=== PATIENT | female | born 1955 | race Caucasian/White ===

== ENCOUNTER 2021-01-11 06:36 | Day surgery (SDC) | payer MEDICARE, SELFPAY ==
[2021-01-05 10:19] VITALS: BMI 25.9
--- NOTE | 2021-01-09 12:24 | HP_ITS ---
DATE OF SERVICE: 01/11/2021 PREOPERATIVE DIAGNOSES: 1. Hallux abductovalgus deformity, left foot. 2. Hammertoe deformity, left 2nd toe. 3. Hammertoe deformity, left 3rd toe. PLANNED PROCEDURE: 1. Left foot Lapidus bunionectomy. 2. Hammertoe repair with K-wire fixation, left 2nd toe. 3. Hammertoe repair, 3rd toe of left foot with K-wire fixation. PAST MEDICAL HISTORY: 1. Angina. 2. Chickenpox. 3. Joint implants and screws. CURRENT MEDICATIONS: 1. Aspirin 81 mg. 2. Magnesium. 3. Isosorbide mononitrate extended release. 4. Potassium. 5. Verapamil. 6. Vitamin D. SURGICAL HISTORY: 1. Hernia repair in 2019. 2. Right RCR in 2017. 3. Hammertoe surgery of left foot in 2019. 4. Bunionectomy of right foot in 2017. FAMILY HISTORY: Significant for stroke, cancer, and foot problems. SOCIAL HISTORY: The patient is a former smoker, current nonsmoker. She denies any illicit drug use. Relates occasional alcohol use. She is . 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 ALLERGIES: TO KEFLEX AND CEFTIN. HOSPITALIZATIONS: Denies. REVIEW OF SYSTEMS: Within normal limits. HISTORY OF PRESENT ILLNESS: This is a 65-year-old female who presents with pain in her left 2nd and 3rd toes as well as a bunion deformity of the left foot that has been present for several years. The patient has previous hammertoe surgery that has left significant pain in her toes with calluses on the plantar aspect of the 2nd and 3rd toe. The patient states that the pain in her left foot has been gradually getting worse. She has tried change in shoes, padding, rest. Previous hammertoe surgeries without any significant relief in symptoms. PHYSICAL EXAM: GENERAL: Reveals a pleasant, alert, well-nourished, well-developed, well-hydrated individual who demonstrates proper attention to body habitus, in no acute distress. She is oriented x3. NEUROLOGICAL: Exam reveals intact sensorium. Pain sensation is normal. Vibratory sensation is intact. Pinprick sensation is normal. The patient denies any anesthesias, burning paresthesias, or tingling bilaterally. VASCULAR: DP and PT pulses are 3/4 bilaterally. Capillary refill is immediate to all digits. Skin temperature is warm to cool, proximal to distal. Hair growth, texture, elasticity, and turgor are normal bilaterally. Pigmentation is normal. There is no edema. DERMATOLOGICAL: Exam reveals no masses. The interspaces are clear. There is keratotic lesions noted to the plantar aspect of the left 2nd and 3rd toes. ORTHOPEDIC EXAM: Muscle strength is 5/5 in a symmetrical fashion bilaterally. Her gait is pronated with bilateral pes planus deformity semi-flexible. There is a medially prominent 1st metatarsophalangeal joint of the left foot. Lateral tracking is incompletely reducible. Inflammation is absent and there is moderate hypermobility of the 1st ray. Digital deformity reveals pain, swelling, enlargement at the base of the PIP joint of the left 2nd and 3rd toes. DIAGNOSTIC DATA: X-ray exams are reviewed, reveals normal bone and soft tissue density consistent with patient's age and sex. She has enlarged hypertrophied phalangeal previous head resections. Clinical findings consistent with hammertoe deformity. There is increased 1st intermetatarsal angle and hallux abductus angle consistent with bunion deformity, hypertrophy of the dorsal first metatarsal head without subchondral cyst noted. Met primus elevatus is moderate. Primus metatarsal protrusion is negative 2 to negative 4. Left metatarsus adductus is normal and the sesamoid position is about 6. There are no fractures identified. PLAN: The patient is scheduled for surgery for bunion and hammertoe deformity. Discussed several options for surgery for her bunion including modified Richardson bunionectomy, Zachery bunionectomy, scarf versus base wedge osteotomies as well as a Lapidus. We discussed the risks of having surgery versus not having surgery, the potential surgical complications which are including, but not limited to pain, swelling, bleeding, scarring, numbness, infection, delayed or nonhealing, floppy toe, unstable toe, shortened toe, recurrence, failure of the procedure, over-correction, we need to plantar flex downward or upward position of the toe, need for further surgery, as well as possibility of loss of toe, foot, life, or limb. Discussed with patient the use of local and IV regional anesthesia and the usual postoperative course, no guarantees were given. The patient verbally indicated a full understanding of the above conversation and any other questions were answered to their satisfaction. We decided on performing a Lapidus bunionectomy with hammertoe repair and K-wire fixation to the 2nd and 3rd toes based on the patient's complaints, medical and social history, physical exam, x-ray analysis. The patient would like to proceed with surgery. The patient will obtain preoperative labs as well as medical clearance for surgery and anesthesia. She is made aware to stop any and all blood thinners including [id number] fish oil and rnbt-[id number] baby aspirin at least 1 week prior to surgery. She is made aware that driving is not permitted during a portion of the postoperative period and not to utilize any smoking or tobacco products. Discussed with the patient that given her previous hammertoe surgery, may not be able to relieve the pain in calluses that the patient currently has. The patient is aware of this risks and wants to proceed with surgery. The patient is requesting a popliteal block on the day of surgery, which has been ordered for her at [facility]. She will be nonweightbearing to the left foot with a knee scooter, which patient states she has. Narcotic pain medication was dispensed. She can half fill the prescription and discussed lowest dosage of narcotics in shortest duration of time. The patient also requests a scopolamine patch as she does get nausea after surgery which was prescribed and sent to her pharmacy. The patient can also stagger taking extra-strength Tylenol and Motrin as needed for pain postoperatively and not to take Tylenol with the Percocet as Percocet has Tylenol in it already. Cindy Carlton DPM LP/CLIFFORD / [phone]
--- NOTE | 2021-01-10 10:20 | HO.ANESPROP2 ---
Documented by User: Karime Stormney 01/10/21 12:13 HPI - Anesthesia Eval Consult details Narrative: 65yo F for Left Bunionectomy and Hammer Toe Repair PCP cleared [facility] Past Medical History Medical History (Updated 01/11/21 @ 08:08 by Paula Duarte MD) HTN (hypertension) Prinzmetal angina Surgical History Surgical History (Updated 01/05/21 @ 10:18 by Marjorie Pena) History of femoral hernia repair History of laparoscopic adjustable gastric banding Hx of cataract extraction Hx of tubal ligation Social History Social History Patient Tobacco Use Status: Former Tobacco user Use of substances other than those prescribed or required for medical reasons: No Have you been hit, kicked, punched, or otherwise hurt by someone within the past year? If so, by whom?: No Are you DNR?: No Advance Directives: No Advance Directives Information Provided: Yes Meds Allergies Allergy/AdvReac Type Severity Reaction Status Date / Time cefuroxime [From Ceftin] Allergy Unknown Verified 01/11/21 07:06 cephalexin [From Keflex] Allergy Rash Verified 01/11/21 07:06 Active Medications: Current Medications Generic Name Dose Route Start Last Admin Trade Name Freq PRN Reason Stop Dose Admin Pharmacy Consult 1 each 01/09/21 11:26 Consult Rx Vancomycin Dosing MISCELLANE DAILY PRN Consult order Exam Exam Date and Time: January 10, 2021 1020 Height,Weight and Vital Signs: Height 5 ft 2.99 in Weight 66.5 kg Pertinent Lab Results Pertinent Lab Results: CMP and CBC from outside facility WNL Narrative Narrative: EKG 12/20/20 SB @ 57 T wave inversion No change from previous Assessment and Plan Assessment Anesthesia Assessment: Chart Reviewed Documented by User: Paula Duarte MD 01/11/21 08:08 [facility] Past Medical History Medical History (Updated 01/11/21 @ 08:08 by Paula Duarte MD) HTN (hypertension) Prinzmetal angina Family History Family history of problems with anesthesia: No Surgical History Surgical History (Updated 01/05/21 @ 10:18 by Marjorie ePna) History of femoral hernia repair History of laparoscopic adjustable gastric banding Hx of cataract extraction Hx of tubal ligation History of Problems with Anesthesia: Yes (Severe N&V with versed) Social History Social History Patient Tobacco Use Status: Former Tobacco user Use of substances other than those prescribed or required for medical reasons: No Have you been hit, kicked, punched, or otherwise hurt by someone within the past year? If so, by whom?: No Are you DNR?: No Advance Directives: No Advance Directives Information Provided: Yes Meds Allergies Allergy/AdvReac Type Severity Reaction Status Date / Time cefuroxime [From Ceftin] Allergy Unknown Verified 01/11/21 07:06 cephalexin [From Keflex] Allergy Rash Verified 01/11/21 07:06 Exam Height,Weight and Vital Signs: Height 5 ft 2.99 in Weight 66.5 kg Vital Signs Temp Pulse Resp BP Pulse Ox 01/11/21 06:52 97.0 F 79 18 141/83 H 97 Airway Mallampati Class: II TM Dist: >3cm Neck ROM: Full Heart: RRR Lungs: CTAB Assessment and Plan Assessment Anesthesia Assessment: Anesthesia Plan Discussed Final Anesthetic Review Family History of Problems with Anesthesia: No History of Problems with Anesthesia: Yes (Severe N&V with versed) NPO: Yes ASA Class: III Final Preanesthetic Review: No Changes in Pt Med Stat, Meds/Allgs Chart Reviewed, Consent Obtained/Reviewed and Anes Risks/Benef Reviewed Patient Risk: Intermediate Procedure Risk: Low Assessment/Block/Sedation in SS: Assess/Block/Sedation- Anesthetic Plan Anesthetic Plan: MAC: and Regional Block (Saphenous and popliteal blocks) Disposition: Standard PACU
--- NOTE | ~2021-01-11 | FL_ITS ---
EXAMINATION: XR FLUOROSCOPY WITH IMAGES CLINICAL INFORMATION: Bunionectomy. COMPARISON: None. TECHNIQUE: Fluoroscopy performed by Cindy Carlton. Fluoroscopy time: 21.5 sec DAP: 9993.0 mGycm2 Images: 1 FINDINGS: There is partial resection of mid segment proximal phalanx third digit with a solitary pin traversing the distal mid and proximal phalanx. There is a solitary pin traversing proximal and mid phalanx second digit. There is bunionectomy changes along the distal first metatarsal. There is metallic plate and screws extending from the proximal first metatarsal to the tarsal bones likely for fusion. FL/FL guidance in OR IMPRESSION: Fluoroscopy was provided to referring physician during distal first metatarsal bunionectomy.
[2021-01-11 06:52] VITALS: BP 141/83; PULSE 79; RESP 18; TEMP 36.1; O2SAT 97; BMI 25.4
[2021-01-11] MEDS: Lactated Ringers 1,000 ML 100 ML IVCONT (07:11)
--- NOTE | 2021-01-11 07:15 | PC.NURSE ---
THIS RN CALLED PHARMACY TO MAKE SURE VANCOMYCIN DOSE IS OKAY. PHARMACY APPROVED VANCOMYCIN 1,000 MG IV.
[2021-01-11] MEDS: vancomycin HCL 1,000 MG in 0.9 % Sodium Chloride 250 ML 270 MG IV (07:42)
--- NOTE | 2021-01-11 08:01 | PC.NURSE ---
NERVE BLOCK BEING COMPLETED AT THIS TIME AT BEDSIDE. TIME OUT COMPLETED.
--- NOTE | 2021-01-11 08:26 | MHC.SHP ---
Pre-Procedural Eval Section A Date of Service: 01/11/21 The patient is an INPATIENT: No Changes since office visit: No Cold of Flu in the past 2 weeks, No New Medical Problems, No Changes in Medication and No Patient answered all questions The History & Physical has been completed within 30 days and I have reviewed it.: Yes Section B Chief Complaint: hallux,hammer toe left foot Allergies: Allergies Allergy/AdvReac Type Severity Reaction Status Date / Time cefuroxime [From Ceftin] Allergy Unknown Verified 01/11/21 07:06 cephalexin [From Keflex] Allergy Rash Verified 01/11/21 07:06 Plan I have reviewed the history and physical and performed a pertinent physical examination on my patient. No changes have occurred unless specified.
--- NOTE | 2021-01-11 10:22 | P.BOP_ITS ---
Brief Operative Note Date of Service: 01/11/21 Pre-op diagnosis: Hallux valgus left, hammer toe 2nd 3rd left Post-op diagnosis: same Procedure: Left lapidus bunionectomy, hammertoe repair with K-wire 2nd 3rd left+ Implants: Lapifus plate and 2 k-wires Surgeon: Cindy Carlton Was an Ammonium Nitrate Crystallizer used for this Procedure?: Yes Ammonium Nitrate Crystallizer: Amilcar Quintana Estimated blood loss (mL): 5 Tourniquet time (min): 81 Pathology: other Condition: stable Disposition: PACU
[2021-01-11 10:25] VITALS: BP 111/67; PULSE 66; RESP 16; TEMP 36.4; O2SAT 95
[2021-01-11 10:40] VITALS: BP 143/76; PULSE 57; RESP 16; O2SAT 100
[2021-01-11 10:55] VITALS: BP 153/79; PULSE 68; RESP 20; TEMP 36.4
--- NOTE | 2021-01-15 14:43 | OP_ITS ---
SURGEON: Cindy Carlton DPM PREOPERATIVE DIAGNOSES: 1. Hallux abductovalgus deformity, left foot. 2. Hammertoe deformity, left second toe. 3. Hammertoe deformity, left third toe. POSTOPERATIVE DIAGNOSES: 1. Hallux abductovalgus deformity, left foot. 2. Hammertoe deformity, left second toe. 3. Hammertoe deformity, left third toe. PROCEDURES PERFORMED: 1. Lapidus bunionectomy, left foot. 2. Hammertoe correction with K-wire fixation, second toe. 3. Hammertoe correction, left third toe with K-wire fixation. ESTIMATED BLOOD LOSS: Less than 5 mL. COMPLICATIONS: None. ANESTHESIA: Monitored anesthetic care with local. Popliteal block of the left lower extremity. SPECIMENS: Bone, left foot. HEMOSTASIS: Pneumatic ankle tourniquet set at 225 mmHg for 81 minutes. FOOD AND BEVERAGE ASSOCIATE: Amilcar Quintana DPM. INDICATIONS FOR SURGERY: The patient had painful bunion and hammertoe deformities of the second and third toes of the left foot that have been present for some time. The patient had previous hammertoe corrections without significant relief of symptoms and her bunion was getting progressively worse. The patient had failed conservative therapies and wanted to proceed with surgical treatment. The above-mentioned surgery was discussed in detail with the patient including risks, benefits, and possible complications. No guarantees were given, and a written and oral informed consent was obtained. DESCRIPTION OF PROCEDURE: The patient was brought into the operating room and placed on the operating table in the usual supine position. The patient was given a prophylactic antibiotic of vancomycin. She was given a popliteal block preoperatively in the PACU in the preop area. Following IV sedation, the left foot was scrubbed, prepped, and draped in a sterile manner. The pneumatic ankle tourniquet was inflated and attention was directed first to the first metatarsal, where an incision was made from the first metatarsal cuneiform joint distally to the first metatarsophalangeal joint. The incision was deepened down to the subcutaneous tissue. Great care was taken to retract vital neural and vascular structures. Bleeders were cauterized or tied off as necessary. Attention was directed to the first metatarsal cuneiform joint, where a capsulotomy was made medial and parallel to the extensor tendons. The soft tissues were freed from their osseous attachments. Two Steinmann pins were placed and a Kristenermann retractor was introduced, opening the first metatarsal cuneiform joint. Using the joint prep kit from [employer] and a sharpened curette and osteotome, the cartilaginous surfaces of the base of the first metatarsal were resected and passed from the operative site. Using power instrumentation, a wedge was taken with the apex pointing medially and the wedge pointing laterally of the base of the first cuneiform. The wedge was then removed in total and passed from the operative site. All cartilage was removed with the curette, and then, the joint space was fenestrated with a 0.062 K-wire. Attention was directed via the same incision to the first metatarsophalangeal joint, where a medial capsulotomy was made medial and parallel to the extensor tendon and the soft tissues were freed about the head of the first metatarsal. The medial eminence of the first metatarsal head was resected and passed from the operative site. Attention was then directed via the same incision to the first interspace, where a lateral release was performed. The deep transverse intermetatarsal ligament was transected, the fibular sesamoidal ligament and the head of the adductor tendon allowing the first metatarsal to drift into a more corrected position. The first metatarsal was then reduced of its IM angle and was derotated and was temporarily fixated with a K-wire from the [employer] LapiFuse set. A 35 mm cannulated screw was then placed through the osteotomy. Prior to compression of the first metatarsal cuneiform joint, a piece of Vitoss was placed to help for [id number] fusion of the first metatarsal cuneiform joint. The screw was then countersunk and predrilled, and the screw was then placed from the plantar medial first metatarsal through the fusion site to the first and second cuneiform joints. Once placed, all guide pins were then removed. A LapiFuse left plate was then placed and was filled with two 18 mm locking screws proximally, 18 mm nonlocking screw in a compression slot, and two 12 mm locking screws in the distal slots. The wound was irrigated with normal sterile saline. The capsular structures were reapproximated with 3-0 Vicryl in a continuous running fashion. A piece of AmnioFix was placed extracapsular, and the skin was reapproximated with 4-0 Monocryl in a continuous running fashion and 4-0 nylon in interrupted suture technique for reinforcement. Attention was then directed to the second toe, at the level of the PIP joint, where an incision was made overlying the PIP joint. The soft tissues were freed about the proximal phalanx. A transverse tenotomy was made at the level of the PIP joint and the soft tissues were freed about the head of the proximal phalanx. There was noted to be significant hypertrophy of the proximal phalanx of the second digit. Using a sagittal saw, the head of the proximal phalanx was resected and passed from the operative site. The wound was irrigated with normal sterile saline. A 0.045 K-wire was then placed through the second toe to serve as temporary fixation, was bent and cut and capped. The tendon was reapproximated with 3-0 Vicryl. The skin was reapproximated with 4-0 nylon in a continuous running fashion. Attention was directed to the third toe, where the same procedure was performed. Attention was directed to the PIP joint, where an incision was made. The incision was deepened down through subcutaneous tissue with great care taken to retract vital neural and vascular structures. A tenotomy was made at the level of the PIP joint and the tendon was freed. The soft tissues were freed from the head of the proximal phalanx. Again, the proximal phalanx head was noted to be hypertrophied and distorted, and this was resected and passed from the operative site. The wound was then irrigated with normal sterile saline. A 0.045 K-wire was then placed through the toe to serve as temporary fixation. The wire was bent, cut, and capped. The tendon was reapproximated with 3-0 Vicryl in an interrupted suture technique, and the skin was reapproximated with 4-0 nylon in a continuous running fashion. Once resection of the proximal phalanx head was done, there was noted to be decrease in pressure at the callus areas plantarly on both the second and third toes. The foot was then dressed with a ZipLine over the first metatarsal cuneiform joint incision. A postoperative injection of 5 mL of 0.5% Marcaine plain and 1 mL of dexamethasone was administered. The incisions were also dressed with Xeroform, Betadine-soaked gauze, 4 x 4's, fluffs, Kerlix, cast padding, and an Michel bandage. The pneumatic ankle tourniquet was deflated after 81 minutes. There was prompt capillary refill noted to all 5 digits. The patient tolerated the procedure and anesthesia well. She was transferred to the recovery room with vital signs stable and vascular status at preoperative levels. The patient is to be nonweightbearing to the left foot with either crutches or a knee scooter. She is to take Percocet as needed for pain, and Motrin and Tylenol when not taking Percocet for any discomfort. The patient will follow up in my office for all postoperative followup care. Cindy Carlton DPM LP/CL[facility]ORD / [id number]
== END 2021-01-11 11:40 | disposition home or self-care (01) ==
PROVIDERS: PCP Nurse Practitioner Family; Visit Provider Podiatrist
PROC: (CPT 28292; principal; 2021-01-11 08:30)
PROC: (CPT 28285; 2021-01-11 08:30)
DX: M20.12 Hallux valgus (acquired), left foot (principal); M21.612 Bunion of left foot; M20.42 Other hammer toe(s) (acquired), left foot; I20.1 Angina pectoris with documented spasm; I10 Essential (primary) hypertension; Z87.891 Personal history of nicotine dependence; Z79.899 Other long term (current) drug therapy; Z88.1 Allergy status to other antibiotic agents; Z79.82 Long term (current) use of aspirin
CPT/HCPCS: 28297; 28285 ×2; 88304; 88311; C1713; J1100; J2370; J2405; J3370; J3590